=== PATIENT | male | born 1945 | race African-American/Black ===

== ENCOUNTER → 2016-07-21 | Outpatient (CLI) | payer OTHER ==
[~2016-07-21] MED LIST: ACET-1757 PO; AMIO200T PO; AMIO200T42 PO; AMLO5TAB4 PO; ASPI-496 PO; ATOR10TA PO; CARV6.2512 PO; CHOL100011 PO; CHOL20002 PO; FAMO-79 PO; GUAI237S4 PO; LEVE500T53 PO; LEVO500T33 PO; MULT-658 PO; MULT400T5 PO; POTA500T PO; PRED20TA PO; PRED5TAB PO; RAMI2.5C PO; SODI1TAB PO; [UNRECOGNIZED DRUG - CODE] PO
[2016-07-21 11:33] LABS: ASPARTATE AMINO TRANSFERASE 41 U/L (15-37); BLOOD UREA NITROGEN 16 mg/dL (7-18)
== END | disposition home or self-care (01) ==
LOC: STAR 09:52
PROVIDERS: ATTEND Urology
DX: Z01.818 Encounter for other preprocedural examination (principal); C61 Malignant neoplasm of prostate; R79.1 Abnormal coagulation profile
CPT/HCPCS: 36415; 80053; 81001; 85610; 85730; 87086; 93005

== ENCOUNTER 2016-08-02 11:03 | Day surgery (SDC) | payer OTHER ==
[~2016-08-02] VITALS: Ht 188 cm; Wt 61.0 kg
[2016-08-02 11:28] VITALS: BP 142/87
[2016-08-02] MEDS ORDERED: LACTATED RINGERS 1,000 ML IV SCH (11:35)
[2016-08-02] MEDS ORDERED: LIDOCAINE 1%, 2ML ONE (11:39)
[2016-08-02] MEDS ORDERED: LIDOCAINE 1%, 2ML SQ PRN (12:00)
[2016-08-02] MEDS ORDERED: LABETALOL 5MG/ML, 20ML ONE (13:26)
[2016-08-02] MEDS ORDERED: NEOSTIGMINE 1 MG/ML, 10ML ONE (13:26)
[2016-08-02] MEDS ORDERED: CARBOPROST TROMETHAMINE 250 MCG/ML, 1ML IM ONE (13:26)
[2016-08-02] MEDS ORDERED: GLYCOPYRROLATE 0.2MG/1ML ONE (13:26)
[2016-08-02] MEDS ORDERED: PROPOFOL 10 MG/ML, 20ML ONE (13:26)
[2016-08-02] MEDS ORDERED: SUCCINYLCHOLINE 20 MG/ML, 10ML ONE (13:26)
[2016-08-02] MEDS ORDERED: ROCURONIUM 10 MG/ML ONE (13:26)
[2016-08-02] MEDS ORDERED: ONDANSETRON 2MG/ML, 2ML ONE ×2 (13:26→16:42)
[2016-08-02] MEDS ORDERED: ONDANSETRON 2MG/ML, 2ML IVPush PRN (14:00)
[2016-08-02] MEDS ORDERED: hydrALAzine 20 MG/ML, 1ML IV PRN (14:00)
[2016-08-02] MEDS ORDERED: LABETALOL 5MG/ML, 20ML IV PRN (14:00)
[2016-08-02] MEDS ORDERED: OXYcodone 5 MG/5 ML ORAL.SOL UDC PO PRN (14:00)
[2016-08-02] MEDS ORDERED: FENTANYL PF 100 MCG/2ML ONE ×2 (16:02→17:59)
[2016-08-02] MEDS ORDERED: OXYcodone 5 MG/5 ML ORAL.SOL UDC ONE (16:02)
[2016-08-02] MEDS ORDERED: hydrALAzine 20 MG/ML, 1ML ONE (16:03)
[2016-08-02] MEDS: FENTANYL PF 100 MCG/2ML IV PRN ×4 (16:11→18:02)
[2016-08-02] MEDS ORDERED: HYDROmorphone 2 MG/ML, 1ML ONE (16:39)
[2016-08-02] MEDS: HYDROmorphone 1 MG/ML, 1ML IV PRN ×4 (17:00→17:41)
[2016-08-02] MEDS ORDERED: SCOPOLAMINE PATCH, 1.5MG PATCH.TD72 TD ONE ×2 (19:26→19:30)
== END 2016-08-02 20:00 | disposition home or self-care (01) ==
LOC: OUT 11:03
PROVIDERS: ATTEND Urology
DX: C61 Malignant neoplasm of prostate (principal); E78.5 Hyperlipidemia, unspecified; I10 Essential (primary) hypertension; Z95.5 Presence of coronary angioplasty implant and graft; N40.0 Benign prostatic hyperplasia without lower urinary tract symptoms; Z95.810 Presence of automatic (implantable) cardiac defibrillator; Z80.0 Family history of malignant neoplasm of digestive organs; Z82.49 Family history of ischemic heart disease and other diseases of the circulatory system; Z72.89 Other problems related to lifestyle
CPT/HCPCS: 55873; C1769; J0330; J0360; J1170; J2405; J2704; J2710; J3010; J3490; J7120